=== PATIENT | male | born 1985 | race Caucasian/White ===

== ENCOUNTER 2021-06-07 18:50 | Emergency (ER) | payer SELFPAY ==
[2021-06-07] MEDS ORDERED: Ibuprofen 800 MG TAB ONE (19:38)
[2021-06-07] MEDS ORDERED: cefTRIAXone\\ROCEPHIN 2 GM VIAL ONE (19:55)
[2021-06-07 20:06] LABS: #Eosinphils 0.1 thou/uL (0.0-0.7); #Lymphocytes 1.4 thou/uL (1.20-3.40); #Monocytes 0.5 thou/uL (0.11-0.59); #Neutrophils 9.7 thou/uL (1.40-6.50); %Basophils 0.2 % (0.0-1.0); %Eosinophils 0.5 % (0.0-10.0); %Lymphocytes 12.2 % (21.0-51.0); %Monocytes 4.4 % (0.0-10.0); %Neutrophils 82.7 % (42.0-75.0); Hemoglobin 14.3 g/dL (14.0-18.0); Mean Corpuscular HGB CONC 35.1 g/dL (32.0-36.0); Mean Corpuscular Hemoglobin 28.4 pg (27.0-31.0); Mean Platelet Volume 7.6 fL (7.4-10.4); Platelet Count 204 thou/uL (130-400); RBC Distribution Width 11.5 % (11.5-14.5); Red Blood Cell (RBC) Count 5.03 mill/uL (4.70-6.10); White Blood Cell (WBC) Count 11.7 thou/uL (4.8-10.8)
[2021-06-07 20:12] LABS: Bilirubin Negative (Negative); Blood, Urine Negative (Negative); Clarity Clear (Clear); Glucose, Urine (Dipstick) Normal (Negative); Ketone, Urine Negative (Negative); Leukocyte Negative Leu/uL (Negative); Nitrite Negative (Negative); Protein, Urine (Dipstick) Negative (Neg-Trace); Specific Gravity, Urine 1.022 (1.002-1.036); Urobilinogen Normal mg/dL (Less than 2); pH, Urine 6.5 (5.0-9.0)
[2021-06-07 20:30] LABS: ALT (SGPT) 53 U/L (8-55); AST (SGOT) 24 U/L (5-34); Albumin 4.6 g/dL (3.5-5.0); Alkaline Phosphatase 92 U/L (40-110); Anion Gap 14 mmol/L (10-20); BUN (Urea Nitrogen) 12 mg/dL (8.9-20.6); Bilirubin, Total 0.7 mg/dL (0.2-1.2); Calc. Creatinine Clearance 0 mL/min (70-130); Calcium 9.4 mg/dL (7.8-10.44); Carbon Dioxide 23 mmol/L (22-29); Chloride 100 mmol/L (98-107); Globulin 3.4 g/dL (2.4-3.5); Glucose 97 mg/dL (70-105); Potassium 3.5 mmol/L (3.5-5.1); Sodium 133 mmol/L (136-145)
[2021-06-07] MEDS ORDERED: Ipratropium Bromide 2.5 ml Neb ONE (20:40)
[2021-06-07] MEDS ORDERED: PROVENTIL INHALER 6.7 G (200 INHALATIONS) ONE (20:40)
[2021-06-07] MEDS ORDERED: GUAIFENESIN SF SOLN 200 MG/10 ML UDCUP PO SCH (20:45)
[2021-06-07] MEDS ORDERED: Albuterol 200 PUFF (6.7GM INHALER) ONE (20:47)
[2021-06-07] MEDS ORDERED: Azithromycin 500 MG VIAL ONE (20:50)
== END 2021-06-07 22:47 | disposition home or self-care (01) ==
LOC: ERS 18:50
DX: J20.9 Acute bronchitis, unspecified (principal)
CPT/HCPCS: 36415; 71045; 80053; 81003; 83605; 85025; 87040; J0456; J0696

== ENCOUNTER 2023-05-23 16:06 | Emergency (ER) | payer SELFPAY ==
[2023-05-23] MEDS ORDERED: Ketorolac Tromethamine 30 MG (1 mL) VIAL ONE (17:36)
[2023-05-23] MEDS ORDERED: Dexamethasone 10 MG/ML VIAL ONE (17:36)
[2023-05-23 18:15] LABS: SARS-CoV-2 NAA Rapid Test Not Detected (NotDetected)
== END 2023-05-23 19:38 | disposition home or self-care (01) ==
LOC: ERS 16:06
DX: J10.1 Influenza due to other identified influenza virus with other respiratory manifestations (principal)
CPT/HCPCS: 71046; 96372; J1100; J1885